=== PATIENT | female | born 1940 | race Caucasian/White ===

== ENCOUNTER 2016-10-21 07:14 | Day surgery (SDC) | payer OTHER ==
[2016-10-21] MEDS ORDERED: D5 LR 1000 ML 1,000 ML IV ONE (07:33)
[2016-10-21] MEDS ORDERED: DIPRIVAN VIAL 20 ML ONE (09:30)
[2016-10-21 10:06] VITALS: BP 134/67
== END 2016-10-21 10:06 | disposition home or self-care (01) ==
LOC: SURG1 07:14
PROVIDERS: ATTEND Internal Medicine Gastroenterology
PROC: 0DJ08ZZ Inspection of Upper Intestinal Tract, Via Natural or Artificial Opening Endoscopic (ICD-10-PCS; principal; 2016-10-21 09:00)
PROC: 0DB68ZX Excision of Stomach, Via Natural or Artificial Opening Endoscopic, Diagnostic (ICD-10-PCS; principal; 2016-10-21 09:00)
DX: K25.9 Gastric ulcer, unspecified as acute or chronic, without hemorrhage or perforation (principal); R93.5 Abnormal findings on diagnostic imaging of other abdominal regions, including retroperitoneum; K29.60 Other gastritis without bleeding; K21.9 Gastro-esophageal reflux disease without esophagitis; K31.89 Other diseases of stomach and duodenum
CPT/HCPCS: 99100; A4217; J3490; J7120